=== PATIENT | female | born 1965 | race Caucasian/White ===

== ENCOUNTER → 2024-03-05 13:25 | Outpatient (REF) | payer BC, SELFPAY | LOC: WDC 13:25 | PROVIDERS: ATTENDING PHYSICIAN Obstetrics & Gynecology; FAMILY PHYSICIAN Family Medicine | DX: Z12.31 Encounter for screening mammogram for malignant neoplasm of breast (principal) | CPT/HCPCS: 77063; 77067 ==

== ENCOUNTER → 2025-01-16 07:30 | Outpatient (REF) | payer BC, SELFPAY | LOC: RAD 07:30 | PROVIDERS: ATTENDING PHYSICIAN Nurse Practitioner | DX: R07.89 Other chest pain (principal) | CPT/HCPCS: 71046 ==